=== PATIENT | male | born 1985 ===

== ENCOUNTER 2025-08-19 06:29 | Day surgery (SDC) | payer OTHER, SELFPAY ==
[2025-08-19 11:35] VITALS: BP 120/73; BMI 38.9
[2025-08-19 11:54] VITALS: BMI 38.9
[2025-08-19] MEDS: NORMOSOL-R/PLASMALYTE-A 1000 IV (12:03)
[2025-08-19] MEDS: NEURONTIN 600 MG PO (15:41)
[2025-08-19 18:16] VITALS: BP 120/73; BP 133/77
[2025-08-19 18:30] VITALS: BP 130/68
[2025-08-19 18:36] VITALS: BP 131/65
[2025-08-19 19:00] VITALS: BP 133/83
[2025-08-19 19:15] VITALS: BP 149/98
== END 2025-08-19 19:19 | disposition home or self-care (01) ==
LOC: SDS 06:29
PROVIDERS: ATTENDING PHYSICIAN Surgery
DX: K64.3 Fourth degree hemorrhoids (principal)
CPT/HCPCS: 46260; 88304